=== PATIENT | female | born 1960 | race Caucasian/White ===

== ENCOUNTER 2023-03-22 10:25 | Emergency (ER) | payer OTHER, SELFPAY ==
--- NOTE | ~2023-03-22 | XR_ITS ---
XR knee LT min 4V 03/22/2023 12:21 Indication: Left knee pain Procedure: 4 views left knee Comparison: No prior studies for comparison. Findings: Severe tricompartment osteoarthritis of the left knee. There is valgus angulation. Small brooks int effusion. No acute fracture. No foreign bodies. Impression: 1: Severe tricompartment osteoarthritis of the left knee. Reviewed, dictated and finalized at location L. ERMAN Impression: 1: Severe tricompartment osteoarthritis of the left knee.
[2023-03-22 11:01] VITALS: BP 162/89; PULSE 85; RESP 20; TEMP 36.8; O2SAT 100
--- NOTE | 2023-03-22 11:28 | ED.EXTPRO ---
HPI - Extremity Problem General Chief complaint: Extremity Problem,Nontraumatic Stated complaint: Unable to bear weight L LE Time Seen by Provider: 03/22/23 11:28 Source: patient and family (spouse) Mode of arrival: wheelchair Limitations: no limitations History of Present Illness HPI Narrative: Patient is a pleasant 62-year-old female with past medical history is noted below presents emergency department today for evaluation of worsening left knee pain. Patient states that she has issues with both of her knees but over the last month the patient's pain has been getting worse. she denies any injury or fall. Denies numbness to the left lower extremity. She states that last night the pain was so bad the pain was a 50/10 when she went to stand up she can not bear any weight. Denies any warmth or redness to the knee. Denies any fever. Has been taking Tylenol and ibuprofen. Does not currently see an orthopedic provider. Denies any history of knee surgeries. Related Data Allergies Allergy/AdvReac Type Severity Reaction Status Date / Time NKDA Allergy Mild Uncoded 07/03/09 13:56 Review of Systems Review of Systems: CONSTITUTIONAL: Denies fever, chills, or sweats. EYES: Denies visual changes, redness, or discharge. CARDIOVASCULAR: Denies chest pain, palpitations, or edema. SKIN: Denies rash or itching. MUSCULOSKELETAL: +left knee pain with any ROM, pain all over. NEUROLOGIC: Denies headache, numbness, or weakness. PSYCHIATRIC: Denies anxiety or depression. All systems reviewed & are unremarkable except as noted in HPI and below Exam Narrative: GENERAL: Well-appearing, obese, well-nourished, and in no acute distress. sitting up in wheelchair. HEAD: Normocephalic, atraumatic. NECK: Supple. CHEST: respirations regular and non-labored, No respiratory distress. HEART: Regular rate. normal distal pulses EXTREMITIES: generalized tenderness to left knee, ROM intact although pain worsens. No erythema/warmth/swelling noted. no knee instability noted. no deformity/contusion. no calf tenderness/swelling to LLE. negative Bennie's sign to LLE. SKIN: Warm, dry, no rash. cap refill <2 seconds NEURO: No focal deficits. Alert and oriented x3. distal NV intact to BL. PSYCH: Normal mood and affect. Course Vital Signs Vital signs: Vital Signs Temperature 98.2 F 03/22/23 11:01 Pulse Rate 85 03/22/23 11:01 Respiratory Rate 20 03/22/23 11:01 Blood Pressure 162/89 H 03/22/23 11:01 Pulse Oximetry 100 03/22/23 11:01 Oxygen Delivery Room Air 03/22/23 11:01 Temperature 98.3 F 03/22/23 13:19 Pulse Rate 80 03/22/23 13:19 Respiratory Rate 18 03/22/23 13:19 Blood Pressure 152/68 H 03/22/23 13:19 Pulse Oximetry 98 03/22/23 13:19 Oxygen Delivery Room Air 03/22/23 11:01 MDM - Extremity (Nontraumatic) MDM Narrative Medical decision making narrative: presents to the ED today for evaluation of left knee pain. no known injury. will obtain x-ray, medicate. she likely will need orthopedic follow-up. left knee x-ray shows significant severe osteoarthritis. Distal neurovascular status is intact. No signs of septic joint. Patient given Aron wrap. If she needs to follow up with Orthopedics. discussed only take norco for severe pain. discussed risk/benefits of opioid use. Discussed care including rest, ice, compression, elevation, anti-inflammatories, [place] only for severe pain as well as short course of steroids.BP elevated. Patient is asymptomatic specifically no chest pain, shortness of breath, headache or vision changes.? All other vital signs are within normal limits. No indication for emergent workup at this time. Discussed risk of untreated blood pressure which includes heart attack, stroke, organ damage, permanent disability and possibly .? Advised need for very close follow-up with PCP for close reevaluation.? Patient expresses verbal understanding of this. Patient is nontoxic in appearance. Stable
[2023-03-22] MEDS: KETOROLAC 30 MG/ML VIAL (*BKC) IM (12:25)
[2023-03-22] MEDS: HYDROcodone/acetaminophen (*CRX) 10-325 MG TABLET 1 TAB PO (12:25)
[2023-03-22 13:19] VITALS: BP 152/68; PULSE 80; RESP 18; TEMP 36.8; O2SAT 98
== END 2023-03-22 13:27 | disposition home or self-care (01) ==
PROVIDERS: Emergency Provider Nurse Practitioner; PCP Internal Medicine
DX: M17.12 Unilateral primary osteoarthritis, left knee (principal); R03.0 Elevated blood-pressure reading, without diagnosis of hypertension
CPT/HCPCS: 73564; 96372; 99283; A9270; J1885

== ENCOUNTER 2024-02-26 11:21 | Emergency (ER) | payer OTHER, SELFPAY ==
--- NOTE | ~2024-02-26 | CT_ITS ---
EXAMINATION: CT abdomen pelvis w con DATE: 02/26/2024 12:53 INDICATION: Left lower quadrant abdominal pain TECHNIQUE: Computed tomography (CT) of the abdomen and pelvis was performed with 100 mL Omnipaque-350 intravenous contrast. Automated exposure control and iterative reconstruction technique were employe d. The dose-length product was 1354.19 mGy-cm. COMPARISON: None FINDINGS: Atelectasis in the right middle lobe and lingula. Heart size is normal. No pericardial or pleural eff usion. There is mild wall thickening at the distal esophagus suggestive of esophagitis. Diffuse hepat ic steatosis. Cholecystectomy clips at gallbladder fossa. Spleen, pancreas, bilateral adrenal glands and kidneys are normal. Moderate-sized multilobulated fat-containing umbilical hernia. There is moder ate colonic diverticulosis with a sigmoid and descending colon predominance. There is no adjacent in flammatory change to suggest diverticulitis. Small bowel and appendix are normal. Liver, anteverted uterus and bilateral adnexa are unremarkable. No free intraperitoneal gas or fluid. No pathologically enlarged abdominal or pelvic lymphadenopathy. Moderate fatty atrophy of the anterior right gluteus m edius muscle belly suggesting likely partial tear of the more distal tendon. Moderate lower thoracic, mild lumbar and severe lumbosacral spondylosis. IMPRESSION: 1. Diverticulosis without evident diverticulitis. 2. Wall thickening at the distal esophagus suggestive of esophagitis such as in the setting of reflux . 3. Diffuse hepatic steatosis. 4. Moderate-sized multilobulated fat-containing umbilical hernia. Reviewed, dictated and finalized at location B. [employer] IMPRESSION: 1. Diverticulosis without evident diverticulitis. 2. Wall thickening at the distal esophagus suggestive of esophagitis such as in the setting of reflux. 3. Diffuse hepatic steatosis. 4. Moderate-sized multilobulated fat-containing umbilical hernia.
[2024-02-26 11:35] VITALS: BP 121/82; PULSE 92; RESP 16; TEMP 36.6; O2SAT 99
[2024-02-26 12:14] LABS: Basophils Absolute Auto 0.1 K/mm3 (0.0-0.1); Basophils Percent Auto 0.8 % (0.2-1.2); Eosinophils Absolute Auto 0.1 K/mm3 (0-0.3); Eosinophils Percent Auto 1.9 % (0-4.4); Hematocrit 42.7 % (37.0-47.0); Hemoglobin 14.6 g/dL (12.0-15.0); Immature Granulocyte Absolute 0.02 K/mm3 (0.00-0.031); Immature Granulocyte Percent A 0.3 % (0-0.5); Lymphocytes Absolute Auto 1.62 K/mm3 (0.9-3.2); Lymphocytes Percent Auto 27.4 % (18.3-44.2); Mean Corpuscular HGB Conc 34.2 g/dl (32-36); Mean Corpuscular Hemoglobin 32.2 pg (26-34); Mean Corpuscular Volume 94.1 fl (80-100); Monocytes Absolute Auto 0.6 K/mm3 (0.1-0.6); Neutrophils Absolute Auto 3.5 K/mm3 (1.3-6.7); Neutrophils Percent Auto 59.6 % (45.5-73.1); Platelet Count Result 232 k/mm3 (150-375); Red Blood Count 4.54 M/mm3 (4.2-5.4); Red Cell Distribution Width 12.7 % (11.5-14.5); White Blood Count 5.9 K/mm3 (4.5-10.0)
[2024-02-26 12:24] LABS: Alanine Aminotransferase 25 U/L (6-35); Albumin Level 4.4 g/dL (3.5-5.1); Alkaline Phosphatase 68 U/L (38-126); Anion Gap 9 mmol/L (4-12); Aspartate Amino Transferase 31 U/L (14-36); Bilirubin,Total 0.7 mg/dL (0.2-1.3); Blood Urea Nitrogen 17 mg/dL (7-17); Calcium 9.2 mg/dL (8.4-10.2); Carbon Dioxide 27 mmol/L (22-30); Chloride 101 mmol/L (98-107); Estimated CRCL calculation 62 ml/min; Estimated Glomerular Filt Rate 56; Glucose 138 mg/dL (65-110); Lipase 39 U/L (23-300); Potassium 4.1 mmol/L (3.4-5.0); Sodium 137 mmol/L (137-145)
[2024-02-26] MEDS: MORPHINE SULFATE (*CRX) 4 MG/ML INJ IV PUSH (12:40)
[2024-02-26 12:45] LABS: Add Urine Microscopic? YES; Appearance Urine Cloudy (Clear); Bilirubin Urine Negative (Negative); Blood Urine Negative (Negative); Color Urine Yellow (Yellow); Glucose Urine UA Negative (Negative); Ketones Urine Trace mg/dL (Negative); Leukocyte Esterase Ur 2+ LEU/UL (Negative); Nitrate Urine Negative (Negative); Protein Urine Negative (Negative); Specific Grav Ur 1.021 (1.001-1.035)
[2024-02-26 13:11] LABS: RBC Urine None seen /hpf (0-2)
[2024-02-26 13:12] LABS: Bacteria Urine Rare /hpf; Squamous Epithelial Cell Urine Moderate /hpf (Few)
--- NOTE | 2024-02-26 14:15 | ED.GENADULT ---
HPI - General Adult General Chief complaint: Abdominal Pain Stated complaint: abd pain Time Seen by Provider: 02/26/24 11:59 History of Present Illness HPI narrative: patient is a 63-year-old female who presents ER with lower abdominal pain. Left lower quadrant. Has pain radiating to left back. Feels similar to previous diverticulitis. No diarrhea or constipation. No fevers or chills or sweats. No improvement with hot pack. Related Data Allergies Allergy/AdvReac Type Severity Reaction Status Date / Time No Known Allergies Allergy Verified 02/26/24 11:38 Review of Systems Review of Systems: All systems reviewed & are unremarkable except as noted in HPI and below Constitutional: Constitutional: Reports no additional constitutional complaints ENT: Reports system reviewed and no additional complaints, except as documented Cardiovascular: Cardiovascular: Reports no additional cardiovascular complaints Respiratory: Respiratory: Reports no additional respiratory complaints Gastrointestinal: Gastrointestinal: Reports no additional gastrointestinal complaints Integumentary/Breasts: Skin/Breast: Reports erythema, Reports rash and Denies skin ulcer PMFSH Past Medical History Medical History (Updated 02/26/24 @ 22:16 by Bryant Lo MD) Diverticulitis Surgical History Surgical History (Updated 02/26/24 @ 22:18 by Bryant Lo MD) H/O partial thyroidectomy History of cholecystectomy Exam Narrative: GENERAL: Well-appearing, well-nourished, and in no acute distress. HEAD: Normocephalic, atraumatic. ENT: Mucous membranes moist. NECK: Supple. CHEST: Clear to auscultation. No respiratory distress. HEART: Regular rate and rhythm. Normal peripheral pulses. ABDOMEN: Soft, Mildly tender left lower quadrant without guarding, nondistended. EXTREMITIES: Normal range of motion. No edema. SKIN: Warm, dry, shingles left L4 distribution going to mid axillary line. NEURO: No focal deficits. Alert and oriented x3. PSYCH: Normal mood and affect. Course Course Emergency Course: patient has no urinary symptoms so we will not be treating with antibiotics. Patient does have shingles on her back restarted on Valtrex. Will give pain medication. CT with Esophagitis, PPI also ordered. Vital Signs Vital signs: Vital Signs Temperature 97.8 F 02/26/24 11:35 Pulse Rate 92 02/26/24 11:35 Respiratory Rate 16 02/26/24 11:35 Blood Pressure 121/82 02/26/24 11:35 Pulse Oximetry 99 02/26/24 11:35 Oxygen Delivery Room Air 02/26/24 11:35 Temperature 97.8 F 02/26/24 11:35 Pulse Rate 70 02/26/24 15:00 Respiratory Rate 16 02/26/24 15:00 Blood Pressure 120/70 02/26/24 15:00 Pulse Oximetry 99 02/26/24 15:00 Oxygen Delivery Room Air 02/26/24 11:35 Medical Decision Making Vital Signs Vital Signs: Vital Signs Temperature 97.8 F 02/26/24 11:35 Pulse Rate 92 02/26/24 11:35 Respiratory Rate 16 02/26/24 11:35 Blood Pressure 121/82 02/26/24 11:35 Pulse Oximetry 99 02/26/24 11:35 Oxygen Delivery Room Air 02/26/24 11:35 Temperature 97.8 F 02/26/24 11:35 Pulse Rate 70 02/26/24 15:00 Respiratory Rate 16 02/26/24 15:00 Blood Pressure 120/70 02/26/24 15:00 Pulse Oximetry 99 02/26/24 15:00 Oxygen Delivery Room Air 02/26/24 11:35 Lab Data 02/26/24 12:08 02/26/24 12:08 Labs: Lab Results 02/26/24 Range/Units 12:08 WBC 5.9 (4.5-10.0) K/mm3 RBC 4.54 (4.2-5.4) M/mm3 Hgb 14.6 (12.0-15.0) g/dL Hct 42.7 (37.0-47.0) % MCV 94.1 (80-100) fl MCH 32.2 (26-34) pg MCHC 34.2 (32-36) g/dl RDW 12.7 (11.5-14.5) % Plt Count 232 (150-375) k/mm3 MPV 9.0 (7.4-10.4) fl Immature Gran % (Auto) 0.3 (0-0.5) % Neut % (Auto) 59.6 (45.5-73.1) % Lymph % (Auto) 27.4 (18.3-44.2) % Saline % (Auto) 10.0 H (2.6-8.5) % Eos % (Auto) 1.9 (0-4.4) % Baso % (Auto) 0.8 (0.2-1.2) % Lymph # (Auto) 1.62 (0.9-3.2) K/mm3 Saline # (Auto) 0.6 (0.1-0.6) K/mm3 Eos # (Auto) 0.1 (0-0.3) K/mm3 Baso # (Auto) 0.1 (0.0-0.1) K/mm3 Abs Immat Gran (auto) 0.02 (0.00-0.031) K/mm3 Absolute Neuts (auto) 3.5 (1.3-6.7) K/mm3 Absolute Nucleated RBC 0.000 (0.0-0.012) K/mm3 Nucleated RBC % 0.0 (0.0-0.2) % Sodium 137 (137-145) mmol/L Potassium 4.1 (3.4-5.0) mmol/L Chloride 101 (98-107) mmol/L Carbon Dioxide 27 (22-30) mmol/L Anion Gap 9 (4-12) mmol/L BUN 17 (7-17) mg/dL Creatinine 1.00 (0.7-1.0) mg/dL Estim Creat Clear Calc 62 ml/min Estimated GFR 56 L (59 - ) Glucose 138 H (65-110) mg/dL Calcium 9.2 (8.4-10.2) mg/dL Total Bilirubin 0.7 (0.2-1.3) mg/dL AST 31 (14-36) U/L ALT 25 (6-35) U/L Alkaline Phosphatase 68 (38-126) U/L Total Protein 8.0 (6.3-8.2) g/dL Albumin 4.4 (3.5-5.1) g/dL Lipase 39 (23-300) U/L Urine Color Yellow (Yellow) Urine Appearance Cloudy H (Clear) Urine pH 5.0 (5.0-9.0) Ur Specific [place] 1.021 (1.001-1.035) Urine Protein Negative (Negative) mg/dL Urine Glucose (UA) Negative (Negative) mg/dL Urine Ketones Trace H (Negative) mg/dL Ur Blood (Man) Negative (Negative) Urine Nitrate Negative (Negative) Urine Bilirubin Negative (Negative) Urine Urobilinogen 1.0 (<2.0) mg/dL Leukocyte Esterase Rfl 2+ H (Negative) ZAHEER/UL Urine RBC None seen (0-2) /hpf Urine WBC 6-10 H (0-3) /hpf Ur Squamous Epith Cells Moderate H (Few) /hpf Urine Bacteria Rare (None) /hpf Imaging Data Radiologist's impression: ITS Impressions Abdomen/Pelvis CT 02/26/24 13:03 IMPRESSION: 1. Diverticulosis without evident diverticulitis. 2. Wall thickening at the distal esophagus suggestive of esophagitis such as in the setting of reflux. 3. Diffuse hepatic steatosis. 4. Moderate-sized multilobulated fat-containing umbilical hernia. Discharge Plan Discharge Clinical Impression: Esophagitis, Shingles Patient Disposition: Home, Self-Care Condition: Stable Instructions: Abdominal Pain (ED), Esophagitis (ED) Additional Instructions: Return to the emergency department if you develop severe abdominal pain, severe nausea and vomiting to the point where you are unable to keep down fluids, if you develop chest pain or difficulty breathing, blood in your stool, dizziness or fainting, or if you develop any other new or concerning symptoms as these could be signs of more serious medical illness. Try to stay well hydrated. Prescriptions: New valacyclovir [Valtrex] 1 gram tablet 1,000 mg PO TID Qty: 21 0RF hydrocodone-acetaminophen 5-325 mg tablet 1 tablet PO Q6H PRN (Reason: pain) Qty: 12 0RF pantoprazole [Protonix] 40 mg tablet,delayed release (DR/EC) 40 mg PO HS 28 Days Qty: 28 0RF No Action diclofenac sodium 50 mg tablet,delayed release (DR/EC) 50 mg PO TID PRN (Reason: pain) Qty: 30 0RF prednisone 10 mg tablet 20 mg PO BID 4 Days Qty: 16 0RF hydrocodone-acetaminophen 7.5-300 mg tablet 1 tablet PO Q8H PRN (Reason: pain) Qty: 12 0RF Follow-up/Referrals: Sada,Crow Velasco MD [Primary Care Provider] - 1 Week
[2024-02-26 15:00] VITALS: BP 120/70; PULSE 70; RESP 16; O2SAT 99
== END 2024-02-26 15:00 | disposition home or self-care (01) ==
PROVIDERS: Emergency Medicine; Emergency Provider Emergency Medicine; PCP Internal Medicine
DX: B02.9 Zoster without complications (principal); K20.90 Esophagitis, unspecified without bleeding; K57.90 Diverticulosis of intestine, part unspecified, without perforation or abscess without bleeding; K76.0 Fatty (change of) liver, not elsewhere classified; K42.9 Umbilical hernia without obstruction or gangrene
CPT/HCPCS: 36415; 74177; 80053; 81001; 83690; 85025; 87086; 87181; 96374; 99284; J2270; Q9967